=== PATIENT | male | born 1945 | race Two or more races ===

== ENCOUNTER → 2017-08-18 | Outpatient (CLI) | payer MEDICARE ==
[~2017-08-18] MED LIST: ALLO100T30 PO; ASPI-496 PO; CEFD300C37 PO; DOXY100C15 PO; LISI-170 PO; OMNIPAQUE 350 MG/ML, 75ML BOTTLE ONE
== END | disposition home or self-care (01) ==
LOC: CFH 10:32
PROVIDERS: ATTEND General Practice
DX: J98.4 Other disorders of lung (principal); J18.9 Pneumonia, unspecified organism; K80.20 Calculus of gallbladder without cholecystitis without obstruction
CPT/HCPCS: 71260; Q9967